=== PATIENT | female | born 1995 | race Hispanic/Latino ===

== ENCOUNTER 2017-11-18 23:43 | Observation (INO) | payer MEDICAID ==
[~2017-11-18] VITALS: Ht 152.4 cm; Wt 68.0 kg
[2017-11-19 00:11] LABS: APPEARANCE,URINE Clear (CLEAR); BILIRUBIN,URINE Negative (NEGATIVE); COLOR,URINE Yellow (YELLOW); GLUCOSE, URINE (UA) Negative (NEGATIVE); KETONES,URINE Negative (NEGATIVE); LEUKOCYTE ESTERASE ,URINE Small (NEGATIVE); NITRATE,URINE Negative (NEGATIVE); OCCULT BLOOD,URINE Negative (NEGATIVE); PH,URINE 5.5 (5.0-8.0); PROTEIN,URINE Trace (NEGATIVE)
[2017-11-19 00:19] LABS: RBC,URINE 0-1 /HPF (0-1)
[2017-11-19 00:20] LABS: BACTERIA,URINE Few /HPF (None Seen); MUCUS,URINE Few LPF (None Seen)
[2017-11-19 01:34] LABS: AMPHET/METH SCREEN,URINE NEGATIVE (NEGATIVE); BARBITURATE SCREEN, URINE NEGATIVE (NEGATIVE); BENZODIAZEPINES SCREEN,URINE NEGATIVE (NEGATIVE); CANNABINOID SCREEN,URINE NEGATIVE (NEGATIVE); COCAINE SCREEN,URINE NEGATIVE (NEGATIVE); OPIATE SCREEN,URINE NEGATIVE (NEGATIVE); PHENCYCLIDINE SCREEN,URINE NEGATIVE (NEGATIVE)
[2017-12-07] MEDS ORDERED: PREN-67 PO (23:39)
== END 2017-11-19 01:25 | disposition home or self-care (01) ==
LOC: EDH 23:43 → LDH 23:44
PROVIDERS: ADMIT Obstetrics & Gynecology; ATTEND Obstetrics & Gynecology
DX: O60.03 Preterm labor without delivery, third trimester (principal); O26.893 Other specified pregnancy related conditions, third trimester; N89.8 Other specified noninflammatory disorders of vagina; Z3A.36 36 weeks gestation of pregnancy
CPT/HCPCS: 80305; 81001; 99285; G0378 ×2

== ENCOUNTER 2018-11-27 17:12 | Emergency (ER) | payer MEDICAID, OTHER ==
[~2018-11-27 17:12] MED LIST: PREN-67 PO
[2018-11-27] MEDS ORDERED: ACETAMINOPHEN EXTRA STRENGTH 500 MG TABLET ONE (17:28)
[2018-11-27 17:29] LABS: APPEARANCE,URINE Clear (CLEAR); BILIRUBIN,URINE Negative (NEGATIVE); COLOR,URINE Yellow (YELLOW); GLUCOSE, URINE (UA) Negative (NEGATIVE); HCG,QUAL RESULT POSITIVE (NEGATIVE); KETONES,URINE Trace mg/dL (NEGATIVE); LEUKOCYTE ESTERASE ,URINE Small (NEGATIVE); NITRATE,URINE Negative (NEGATIVE); OCCULT BLOOD,URINE Negative (NEGATIVE); PH,URINE 5.5 (5.0-8.0); PROTEIN,URINE Negative (NEGATIVE)
[2018-11-27 17:35] LABS: BACTERIA,URINE Few /HPF (None Seen); RBC,URINE 0-1 /HPF (0-1)
[2018-11-27 17:36] LABS: MUCUS,URINE Many LPF (None Seen); SQUAMOUS EPITHELIAL CELL,UR Moderate /HPF (0-2)
== END 2018-11-27 18:43 | disposition home or self-care (01) ==
LOC: EDH 17:12
DX: O23.41 Unspecified infection of urinary tract in pregnancy, first trimester (principal); O26.891 Other specified pregnancy related conditions, first trimester; G44.209 Tension-type headache, unspecified, not intractable; Z98.890 Other specified postprocedural states; Z3A.01 Less than 8 weeks gestation of pregnancy
CPT/HCPCS: 36415; 76801; 81001; 81025; 84702

== ENCOUNTER 2018-12-01 13:04 | Emergency (ER) | payer OTHER ==
[2018-12-01] MEDS ORDERED: SODIUM CHLORIDE 0.9% 1000ML 1,000 ML IV ONE (13:40)
[2018-12-01 14:31] LABS: BASOPHILS % (AUTO) 0.6 % (0.0-5.0); EOSINOPHILS % (AUTO) 2.9 % (0.0-8.0); HEMATOCRIT 38.8 % (36-48); LYMPHOCYTES % (AUTO) 29.2 % (21.0-51.0); MEAN CORPUSCULAR HEMOGLOBIN 28.2 pg (27.0-33.0); MEAN CORPUSCULAR HGB CONC 33.6 g/dL (32.0-36.0); MEAN CORPUSCULAR VOLUME 84.1 fL (79-99); MONOCYTES % (AUTO) 5.8 % (3.0-13.0); NEUTROPHILS % (AUTO) 61.5 % (40.0-77.0); NUCLEATED RED BLOOD CELLS 0.1 % (0.0-0.19); PLATELET COUNT (AUTO) 285 K/uL (130-400); RED BLOOD CELL COUNT(AUTO) 4.61 MIL/uL (4.00-5.50); RED CELL DISTRIBUTION WIDTH 15.8 % (11.0-15.5); WHITE BLOOD COUNT (AUTO) 6.9 K/uL (4.8-10.8)
[2018-12-01 14:32] LABS: APPEARANCE,URINE Clear (CLEAR); BILIRUBIN,URINE Negative (NEGATIVE); COLOR,URINE Yellow (YELLOW); GLUCOSE, URINE (UA) Negative (NEGATIVE); KETONES,URINE 15 mg/dL (NEGATIVE); LEUKOCYTE ESTERASE ,URINE Negative (NEGATIVE); NITRATE,URINE Negative (NEGATIVE); OCCULT BLOOD,URINE Negative (NEGATIVE); PROTEIN,URINE Negative (NEGATIVE)
[2018-12-01 14:42] LABS: CREATININE 0.5 mg/dL (0.5-1.5); POTASSIUM 3.6 mmol/L (3.5-5.1)
== END 2018-12-01 16:01 | disposition home or self-care (01) ==
LOC: EDH 13:04
DX: O20.0 Threatened abortion (principal); Z3A.01 Less than 8 weeks gestation of pregnancy
CPT/HCPCS: 36415; 76801; 80048; 81003; 84702; 85025; 86900; 86901; 99285; J7030

== ENCOUNTER 2018-12-03 13:25 | Emergency (ER) | payer OTHER | END 2018-12-03 15:15 | disposition home or self-care (01) | LOC: EDH 13:25 | DX: Z34.01 Encounter for supervision of normal first pregnancy, first trimester (principal) | CPT/HCPCS: 36415; 84702 ==

== ENCOUNTER 2018-12-23 20:55 | Emergency (ER) | payer MEDICAID ==
[2018-12-23 22:13] LABS: BILIRUBIN,URINE Negative (NEGATIVE); COLOR,URINE Orange (YELLOW); GLUCOSE, URINE (UA) Negative (NEGATIVE); KETONES,URINE Negative (NEGATIVE); LEUKOCYTE ESTERASE ,URINE Large (NEGATIVE); NITRATE,URINE Negative (NEGATIVE); OCCULT BLOOD,URINE Large (NEGATIVE); PROTEIN,URINE POS 1+ mg/dL (NEGATIVE)
[2018-12-23 22:14] LABS: APPEARANCE,URINE CLOUDY (CLEAR)
[2018-12-23 22:35] LABS: BACTERIA,URINE Moderate /HPF (None Seen); MUCUS,URINE Few LPF (None Seen); RBC,URINE TNTC /HPF (0-1); SQUAMOUS EPITHELIAL CELL,UR Few /HPF (0-2)
== END 2018-12-23 23:09 | disposition home or self-care (01) ==
LOC: EDH 20:55
DX: O02.1 Missed abortion (principal); O23.41 Unspecified infection of urinary tract in pregnancy, first trimester; Z98.890 Other specified postprocedural states
CPT/HCPCS: 76801; 81001

== ENCOUNTER 2019-02-14 05:50 | Day surgery (SDC) | payer MEDICAID ==
[2019-02-10 12:51] VITALS: BP 113/67
[2019-02-10 12:52] LABS: BASOPHILS % (AUTO) 0.9 % (0.0-5.0); EOSINOPHILS % (AUTO) 4.6 % (0.0-8.0); HEMATOCRIT 31.4 % (36-48); LYMPHOCYTES % (AUTO) 40.5 % (21.0-51.0); MEAN CORPUSCULAR HEMOGLOBIN 24.5 pg (27.0-33.0); MEAN CORPUSCULAR HGB CONC 32.4 g/dL (32.0-36.0); MEAN CORPUSCULAR VOLUME 75.7 fL (79-99); PLATELET COUNT (AUTO) 382 K/uL (130-400); RED BLOOD CELL COUNT(AUTO) 4.15 MIL/uL (4.00-5.50); RED CELL DISTRIBUTION WIDTH 16.6 % (11.0-15.5); WHITE BLOOD COUNT (AUTO) 5.2 K/uL (4.8-10.8)
--- NOTE | 2019-02-10 15:19 | NUR ---
SPOKE TO NATALEE QUINTANA AND DR. BALL NO NEW ORDERS FOR ABNORMAL LABS.
[~2019-02-14] VITALS: Ht 157.5 cm; Wt 67.6 kg
[~2019-02-14 05:50] MED LIST changes: +IRON PO; +LACTATED RINGERS 1000ML 1,000 ML IV ONE; -PREN-67 PO
[2019-02-14 06:05] VITALS: BP 104/62
[2019-02-14] MEDS ORDERED: DEXAMETHASONE SOD PHOSPHATE 10MG/ML 1ML VIAL ONE (06:33)
[2019-02-14] MEDS ORDERED: ONDANSETRON HCL 4 MG/2 ML VIAL ONE (06:33)
[2019-02-14] MEDS ORDERED: PROPOFOL 10 MG/ML 20ML VIAL IV ONE ×2 (06:33→06:49)
[2019-02-14] MEDS ORDERED: LIDOCAINE PF 2% 5ML ABBOJECT ONE (06:33)
[2019-02-14] MEDS ORDERED: MIDAZOLAM HCL 1 MG/ML 2ML VIAL ONE (06:33)
[2019-02-14] MEDS ORDERED: FENTANYL CITRATE PF 50 MCG/1 ML 2ML VIAL ONE (06:34)
[2019-02-14] MEDS ORDERED: OXYTOCIN 10 USP UNITS/ML ONE (06:53)
[2019-02-14] MEDS ORDERED: CALDOLOR 800MG+NS 250ML 250 ML IV ONE (07:46)
[2019-02-14] MEDS ORDERED: CITRIC ACID/SODIUM CITRATE 30 ML UDCUP PO ONE (08:00)
[2019-02-14] MEDS ORDERED: SODIUM CHLORIDE 0.9% 1000ML 1,000 ML IV SCH (08:00)
[2019-02-14] MEDS ORDERED: LACTATED RINGERS 1000ML 1,000 ML IV SCH ×2 (08:00)
[2019-02-14] MEDS ORDERED: IPRATROPIUM/ALBUTEROL SULFATE 3 ML SOLUTION IH PRN (08:00)
[2019-02-14] MEDS ORDERED: MEPERIDINE-PF 50 MG/ML SYG IVP PRN (08:00)
[2019-02-14] MEDS ORDERED: SCOPOLAMINE HYDROBROMIDE 1 EACH ADH..PATCH TD ONE (08:00)
[2019-02-14] MEDS ORDERED: ONDANSETRON HCL 4 MG/2 ML VIAL IVP PRN (08:00)
[2019-02-14] MEDS ORDERED: FAMOTIDINE/PF 20 MG/2 ML VIAL IV ONE (08:00)
[2019-02-14] MEDS ORDERED: KETOROLAC TROMETHAMINE 30MG/ML IVP PRN (08:00)
[2019-02-14] MEDS ORDERED: MORPHINE SULFATE 5 MG/ML VIAL IVP PRN (08:00)
[2019-02-14] MEDS ORDERED: METOCLOPRAMIDE 10 MG/2 ML VIAL IVP PRN (08:00)
[2019-02-14 08:18] VITALS: BP 102/67
--- NOTE | 2019-02-14 08:30 | NUR ---
PT IS STABLE, NO HEAVY BLEEDING AND VOIDED X 1
[2019-02-14 08:35] VITALS: BP 103/70
--- NOTE | 2019-02-14 09:00 | NUR ---
PT V/S STABLE NO HEAVY BLEEDING. PT RECEIVED D/C INSTRUCTION AND VOIDED X 1. PT LEFT VIA WHEEL CHAIR IN PVT CAR WITH .
== END 2019-02-14 09:00 | disposition home or self-care (01) ==
LOC: DAH 05:50
PROVIDERS: ATTEND Obstetrics & Gynecology
DX: O02.1 Missed abortion (principal); N85.8 Other specified noninflammatory disorders of uterus; F17.210 Nicotine dependence, cigarettes, uncomplicated; Z98.890 Other specified postprocedural states; Z79.899 Other long term (current) drug therapy
CPT/HCPCS: 36415 ×2; 59820; 85025; 86850 ×2; 86900 ×2; 86901 ×2; 88305; A4215; A4221; A4222; A4223; A4606; A4663; J1100; J1741; J2001; J2250; J2405; J2590; J2704 ×2; J3010; J7120 ×2

== ENCOUNTER 2020-12-04 13:45 | Observation (INO) | payer MEDICAID ==
[~2020-12-04] VITALS: Ht 152.4 cm; Wt 73.9 kg
[~2020-12-04 13:45] MED LIST changes: -LACTATED RINGERS 1000ML 1,000 ML IV ONE
[2020-12-04 14:13] LABS: APPEARANCE,URINE Clear (CLEAR); BILIRUBIN,URINE Negative (NEGATIVE); COLOR,URINE Yellow (YELLOW); GLUCOSE, URINE (UA) Negative (NEGATIVE); KETONES,URINE Negative (NEGATIVE); LEUKOCYTE ESTERASE ,URINE Trace (NEGATIVE); NITRATE,URINE Negative (NEGATIVE); OCCULT BLOOD,URINE Negative (NEGATIVE); PH,URINE 6.5 (5.0-8.0); PROTEIN,URINE Negative (NEGATIVE); UROBILINOGEN,URINE 0.2 mg/dL (0.2-1.0)
[2020-12-04 14:19] LABS: BACTERIA,URINE Rare /HPF (None Seen); RBC,URINE 0-1 /HPF (0-1); SQUAMOUS EPITHELIAL CELL,UR Few /HPF (0-2); WBC,URINE 0-1 /HPF (0-1)
== END 2020-12-04 15:40 | disposition home or self-care (01) ==
LOC: EDH 13:49 → LDH 13:58
PROVIDERS: ADMIT Obstetrics & Gynecology; ATTEND Obstetrics & Gynecology
DX: O62.9 Abnormality of forces of labor, unspecified (principal); O26.893 Other specified pregnancy related conditions, third trimester; R10.9 Unspecified abdominal pain; Z3A.36 36 weeks gestation of pregnancy
CPT/HCPCS: 81001; G0378 ×2

== ENCOUNTER 2023-01-15 23:53 | Emergency (ER) | payer MEDICAID, OTHER ==
[~2023-01-15] VITALS: Ht 152.4 cm; Wt 77.6 kg
[~2023-01-15 23:53] MED LIST changes: +CYCL10TA16 PO; +NAPR-1180 PO
[2023-01-16 00:30] VITALS: BP 112/68; PULSE 75; RESP 17; O2SAT 98
[2023-01-16 00:46] LABS: APPEARANCE,URINE CLEAR (CLEAR); BILIRUBIN,URINE NEGATIVE (NEGATIVE); COLOR,URINE LIGHT-YELLOW (YELLOW); GLUCOSE, URINE (UA) NEGATIVE (NEGATIVE); KETONES,URINE NEGATIVE (NEGATIVE); LEUKOCYTE ESTERASE ,URINE 25 Leu/uL (NEGATIVE); NITRATE,URINE NEGATIVE (NEGATIVE); OCCULT BLOOD,URINE MODERATE (NEGATIVE); PROTEIN,URINE 10 mg/dL (NEGATIVE)
[2023-01-16 00:50] LABS: ADD UA MICROSCOPIC YES
[2023-01-16 00:52] LABS: BASOPHILS # (AUTO) 0.07 K/uL (0.00-0.20); BASOPHILS % (AUTO) 0.8 % (0.0-5.0); EOSINOPHILS # (AUTO) 0.44 K/uL (0.00-0.70); EOSINOPHILS % (AUTO) 4.9 % (0.0-8.0); HEMATOCRIT 34.9 % (36-48); IMMATURE GRANULOCYTE ABSOLUTE 0.02 K/uL (0-1); LYMPHOCYTES # (AUTO) 3.2 K/uL (1.0-4.8); LYMPHOCYTES % (AUTO) 35.7 % (21.0-51.0); MEAN CORPUSCULAR HEMOGLOBIN 28.4 pg (27.0-33.0); MEAN CORPUSCULAR VOLUME 86.2 fL (79-99); MONOCYTES # (AUTO) 0.7 K/uL (0.1-1.0); MONOCYTES % (AUTO) 7.4 % (3.0-13.0); NEUTROPHILS # (AUTO) 4.6 K/uL (1.8-7.7); PLATELET COUNT (AUTO) 287 K/uL (130-400); RED BLOOD CELL COUNT(AUTO) 4.05 MIL/uL (4.00-5.50); RED CELL DISTRIBUTION WIDTH 14.1 % (11.0-15.5)
[2023-01-16 00:58] LABS: BACTERIA,URINE RARE /HPF (None Seen); MUCUS,URINE RARE LPF (None Seen); SQUAMOUS EPITHELIAL CELL,UR RARE /HPF (0-2)
[2023-01-16 00:59] LABS: CREATININE 0.7 mg/dL (0.5-1.5); POTASSIUM 3.5 mmol/L (3.5-5.1)
[2023-01-16 01:04] LABS: ALBUMIN 3.3 g/dL (3.5-5.0); BILIRUBIN,TOTAL 0.1 mg/dL (0.2-1.0); TOTAL PROTEIN, SERUM 7.1 g/dL (6.0-8.3)
[2023-01-16] MEDS ORDERED: PREN1CAP37 PO (03:31)
== END 2023-01-16 03:42 | disposition home or self-care (01) ==
LOC: EDH 23:53
DX: O20.9 Hemorrhage in early pregnancy, unspecified (principal); Z3A.01 Less than 8 weeks gestation of pregnancy; Z79.899 Other long term (current) drug therapy; Z98.890 Other specified postprocedural states
CPT/HCPCS: 36415; 76817; 80053; 81001; 81025; 84702; 85025; 86900; 86901

== ENCOUNTER 2023-02-21 15:18 | Emergency (ER) | payer OTHER ==
[~2023-02-21] VITALS: Ht 152.4 cm; Wt 74.0 kg
[~2023-02-21 15:18] MED LIST changes: +PREN1CAP37 PO
[2023-02-21 15:20] VITALS: BP 116/66; PULSE 82; RESP 16
[2023-02-21] MEDS ORDERED: NAPR-1180 PO (16:21)
== END 2023-02-21 18:04 | disposition home or self-care (01) ==
LOC: EDH 15:18
DX: S16.1XXA Strain of muscle, fascia and tendon at neck level, initial encounter (principal); H92.01 Otalgia, right ear; Z79.899 Other long term (current) drug therapy; Z98.890 Other specified postprocedural states; X58.XXXA Exposure to other specified factors, initial encounter; Y93.89 Activity, other specified; Y92.89 Other specified places as the place of occurrence of the external cause; Y99.8 Other external cause status
CPT/HCPCS: 87880

== ENCOUNTER 2023-09-30 19:04 | Emergency (ER) | payer OTHER ==
[~2023-09-30] VITALS: Ht 152.4 cm; Wt 68.0 kg
[2023-09-30] MEDS ORDERED: NAPR-1023 PO (21:15)
[2023-09-30] MEDS ORDERED: CYCL5TAB PO (21:15)
[2023-09-30] MEDS ORDERED: SILV20CR11 TP (21:15)
[2023-09-30] MEDS: KETOROLAC 30MG VIAL (30MG/ML) IM ONE (21:19)
[2023-09-30] MEDS: TETANUS/DIPHTHERIA TOXOID [ADULT] 0.5 ML VIAL IM ONE (21:24)
[2023-09-30 21:34] VITALS: BP 121/62; PULSE 65; RESP 18; O2SAT 99
== END 2023-09-30 21:39 | disposition home or self-care (01) ==
LOC: EDH 19:04
DX: T22.422A Corrosion of unspecified degree of left elbow, initial encounter (principal); T22.412A Corrosion of unspecified degree of left forearm, initial encounter; S00.81XA Abrasion of other part of head, initial encounter; M79.10 Myalgia, unspecified site; Z79.899 Other long term (current) drug therapy; Z98.890 Other specified postprocedural states; Y93.I9 Activity, other involving external motion; Y92.488 Other paved roadways as the place of occurrence of the external cause; Y99.8 Other external cause status
CPT/HCPCS: 99284; 81025; 90714; 96372; 90471; J1885

== ENCOUNTER 2024-08-04 09:38 | Emergency (ER) | payer SELFPAY ==
[~2024-08-04] VITALS: Ht 152.4 cm; Wt 68.5 kg
[~2024-08-04 09:38] MED LIST changes: +CYCL5TAB3 PO; +NAPR-1194 PO; +SILV20CR11 TP
--- NOTE | 2024-08-04 10:27 | ERN ---
General Chief Complaint: Abdominal Pain Stated Complaint: EPIGASTRIC PAIN, N/V Time Seen by MD: 09:43 Source: patient History of Present Illness Initial Comments 28-year-old female coming in with abdominal discomfort. She states that he has a history of gastritis and this recently seen at another ER. She states that she had a CT and an ultrasound performed no acute findings were present. States that she was told to follow up with the ER if her symptoms did not improve. She was also referred to a mine car repairer for possible endoscopy. Allergies: Coded Allergies: No Known Allergies (Verified Allergy, 02/06/12) Home Meds Active Scripts Silver Sulfadiazine (Silvadene) 1 % Cream..g., 1 APPLIC TP BID for 10 Days, #50 G Prov:ARIN KUMAR 09/30/23 Cyclobenzaprine HCl (Cyclobenzaprine HCl) 5 Mg Tablet, 5 MG PO DAILYDINNER for 7 Days, #7 TAB Prov:ARIN KUMAR 09/30/23 Naproxen (Naproxen) 500 Mg Tablet, 500 MG PO BID for 5 Days, #10 TAB Prov:ARIN KUMAR 09/30/23 Naproxen (Naprosyn) 500 Mg Tablet, 500 MG PO BIDPC PRN for PAIN for 10 Days, #20 TAB 0 Refills take with meaL, note precautions Prov:ESTEVAN VALERA 02/21/23 93/Iron/Folate 9/Dha (Westgel Dha Softgel) 1 Each Capsule, 1 EACH PO DAILY, #30 CAP 0 Refills Prov:ALISIA GAMBOA MD 01/16/23 Cyclobenzaprine HCl (Flexeril) 10 Mg Tab, 10 MG PO BID, #30 TAB Prov:GAVIOTA FRANCO 04/22/22 Naproxen (Naprosyn) 500 Mg Tablet, 500 MG PO BIDPC, #60 TAB Prov:GAVIOTA FRANCO 04/22/22 Reported Medications [Iron] No Conflict Check, 1 TAB PO BID 02/10/19 Past Medical History Past Medical History: GERD Past Surgical History: Family History Family History: Negative Social History Social History: Negative Female( History) LMP: Jun 28, 2024 : 4 Para: 3 ROS Dictation CONSTITUTIONAL: No chills, no fever, no weakness, no diaphoresis, no malaise. HEAD/FACE: No signs of trauma. EENT: No eye pain, no blurred vision, no tearing, no double vision, no ear pain, no ear discharge, no nose pain, no nasal congestion, no throat pain, no throat swelling, no mouth pain. RESPIRATORY: No cough, no orthopnea, no SOB, no stridor, no wheezing. CARDIOVASCULAR: No chest pain, no edema, no palpitations, no syncope. GASTROINTESTINAL/ABDOMINAL: No abdominal pain, no constipation, no diarrhea, no nausea, no vomiting. GENITOURINARY: No abnormal discharge, no dysuria, no frequent urination, no hematuria. No complaints of pain in the genitals. MUSCULOSKELETAL: No back pain, no gout, no joint pain, no joint swelling, no muscle pain, no muscle stiffness, no neck pain. INTEGUMENTARY: No change in color, no change in hair/nails, no dryness, no lesion, no lumps, no rash. NEUROLOGICAL/PSYCH: No anxiety, not depressed, no emotional problem, no headache, no numbness, no pre-existing deficit, no history of seizures, no tremors, no weakness. HEMATOLOGIC/LYMPHATIC: Not anemic, no history of blood clots, no apparent bleeding, no bruising, glands not swollen. All Systems Negative, Except as Noted. Physical Exam Physical Exam Dictation VITAL SIGNS: Reviewed. GENERAL APPEARANCE: Alert, oriented x3, no acute distress, obese. HEAD AND FACE: Non-traumatic. EYES: PERRL, pink conjunctivas, eyelid no trauma, anterior chamber clear. EARS: Pinnas intact and no signs of trauma or erythema. Ear canals clear and no discharge. TMs no erythema. NOSE: No discharge, no bleeding. OROPHARYNX: Mouth normal, teeth no caries, tongue pink. Pharynx clear, no erythema. Tonsils no exudates, no abscesses noted. Mucous membrane moist. NECK: Supple, non-tender, no thyromegaly, no masses, no JVD, no bruits. BREAST: Deferred. CHEST: No tenderness, no crepitus, no paradoxical movement, no retractions. LUNGS: Clear, well-ventilated, symmetric, no rales, no wheezing, no rhonchi, no stridor, good breath sounds bilaterally. HEART: Regular rate, regular rhythm, no murmur, no gallops. VASCULAR: No peripheral edema. ABDOMEN: Soft, positive bowel sounds, nondistended, no guarding, nontender, no rebound, no masses no hepatomegaly, no splenomegaly, no Ho's sign, no hernias. RECTAL: Deferred. GENITAL: Deferred. NEUROLOGICAL: Normal speech, gross motor function intact, gross sensory function intact. MUSCULOSKELETAL: Neck nontender, full range of motion, back nontender, full range of motion. EXTREMITIES: Nontender, full range of motion. SKIN: Color pink, dry, no turgor, no rash, no lacerations, no abrasions, no contusions. LYMPHATICS: Deferred. Results Laboratory and Microbiology Lab and Micro Result Laboratory Tests Test 08/04/24 10:12 08/04/24 10:15 08/04/24 10:30 Urine Color YELLOW (YELLOW) Urine Appearance CLEAR (CLEAR) Urine pH 5.5 (5.0-8.0) Urine Specific [place] 1.028 (1.001-1.031) Urine Protein 10 mg/dL (NEGATIVE) H Urine Glucose (UA) NEGATIVE mg/dL (NEGATIVE) Urine Ketones 5 mg/dL (NEGATIVE) H Urine Occult Blood +- (TRACE) (NEGATIVE) H Urine Nitrate NEGATIVE (NEGATIVE) Urine Bilirubin NEGATIVE mg/dL (NEGATIVE) Urine Urobilinogen 0.2 mg/dL (0.2-1.0) Urine Leukocyte Esterase 25 Juanis/uL (NEGATIVE) H Urine RBC 2-5 /HPF (0-1) H Urine WBC 2-5 /HPF (0-1) H Urine Squamous Epithelial Cells MOD /HPF (0-2) Urine Bacteria RARE /HPF (None Seen) Urine HCG, Qualitative NEGATIVE (NEGATIVE) Urine Opiates Screen NEGATIVE (NEGATIVE) Urine Barbiturates Screen NEGATIVE (NEGATIVE) Urine Phencyclidine Screen NEGATIVE (NEGATIVE) Urine Amphetamines Screen NEGATIVE (NEGATIVE) Urine Benzodiazepines Screen NEGATIVE (NEGATIVE) Urine Cocaine Screen NEGATIVE (NEGATIVE) Urine Marijuana (THC) Screen POSITIVE (NEGATIVE) H White Blood Count 6.3 K/uL (4.8-10.8) Red Blood Count 4.66 MIL/uL (4.00-5.50) Hemoglobin 13.9 g/dL (12.0-16.0) Hematocrit 42.3 % (36-48) Mean Corpuscular Volume 90.8 fL (79-99) Mean Corpuscular Hemoglobin 29.8 pg (27.0-33.0) Mean Corpuscular Hemoglobin Concent 32.9 g/dL (32.0-36.0) Red Cell Distribution Width 13.2 % (11.0-15.5) Platelet Count 246 K/uL (130-400) Mean Platelet Volume 9.9 fL (7.5-10.5) Immature Granulocyte % (Auto) 0.2 % (0-1) Neutrophils (%) (Auto) 65.8 % (40.0-77.0) Lymphocytes (%) (Auto) 18.5 % (21.0-51.0) L Monocytes (%) (Auto) 7.0 % (3.0-13.0) Eosinophils (%) (Auto) 7.6 % (0.0-8.0) Basophils (%) (Auto) 0.9 % (0.0-5.0) Neutrophils # (Auto) 4.2 K/uL (1.8-7.7) Lymphocytes # (Auto) 1.2 K/uL (1.0-4.8) Monocytes # (Auto) 0.4 K/uL (0.1-1.0) Eosinophils # (Auto) 0.48 K/uL (0.00-0.70) Basophils # (Auto) 0.06 K/uL (0.00-0.20) Absolute Immature Granulocyte (auto 0.01 K/uL (0-1) Nucleated Red Blood Cells 0.0 % (0.0-0.19) Sodium Level 138 mmol/L (136-145) Potassium Level 3.6 mmol/L (3.5-5.1) Chloride Level 103 mmol/L (101-111) Carbon Dioxide Level 29 mmol/L (21-32) Blood Urea Nitrogen 10 mg/dL (7-18) Creatinine 0.5 mg/dL (0.5-1.0) Glomerular Filtration Rate Calc 129 mL/min (>90) Random Glucose 94 mg/dL (70-105) Total Calcium 9.5 mg/dL (8.5-10.1) Total Bilirubin 0.4 mg/dL (0.2-1.0) Aspartate Amino Transf (AST/SGOT) 35 U/L (10-37) Alanine Aminotransferase (ALT/SGPT) 108 U/L (12-78) H Alkaline Phosphatase 77 U/L (50-136) Total Protein 8.0 g/dL (6.0-8.3) Albumin 3.8 g/dL (3.5-5.0) Lipase 46 U/L (16-77) Influenza Type A Antigen Negative For Type A Influenza Type B Antigen Negative For Type B SARS-CoV-2, RNA, NAAT NEGATIVE SARS CoV-2 Labs Reviewed?: Yes MDM Patient is a 28-year-old female coming in to be evaluated for abdominal discomfort. Patient states that this has been ongoing for a couple of days and she was evaluated another hospital laboratory workup included CT were negative. Laboratory workup here positive for cannabis. I advised her appropriate follow up with PCP in the avoidance of recreational drugs in his this could increased abdominal discomfort. ED Course Orders Procedure Category Date Status Time Urinalysis Profile LAB 08/04/24 Complete 09:50 ,Urine Test LAB 08/04/24 Complete 09:50 Cbc With Differential LAB 08/04/24 Complete 09:56 Comprehensive LAB 08/04/24 Complete Metabolic Panel 09:56 12 Lead Ekg Tracing- EKG 08/04/24 Complete Technical 09:56 Lipase LAB 08/04/24 Complete 09:56 Influenza Type A & B, LAB 08/04/24 Complete Rapid 09:56 Covid Rna Naat LAB 08/04/24 Complete 09:56 Drug Screen Urine LAB 08/04/24 Complete 11:03 Vital Signs Date Time Temp Pulse Resp B/P (MAP) Pulse Ox O2 Delivery O2 Flow Rate FiO2 08/04/24 10:30 98.2 73 10 116/72 100 Room Air* 0 21 08/04/24 09:40 98.2 77 16 115/87 0 Room Air 0 DX & DISP Disposition: Discharge Departure Impression: Primary Impression: Cannabis abuse Additional Impression: Gastritis Condition: Stable Scripts Pantoprazole Sodium (Protonix) 40 Mg Ectab 1 TAB PO DAILY for 30 Days, #30 TAB 0 Refills Prov: GEETHA COLLINS MD 08/04/24 Additional Instructions: FOLLOW-UP WITH PRIMARY CARE PROVIDER IN 1 TO 2 DAYS. TAKE MEDICATIONS DIRECTED HERE IN THE EMERGENCY ROOM. OKAY TO CONTINUE HOME MEDICATIONS UNLESS OTHERWISE DISCUSSED DURING YOUR VISIT IN THE EMERGENCY ROOM TODAY. RETURN TO YOUR NEAREST EMERGENCY ROOM IF SYMPTOMS WORSEN OR IF THERE IS NO IMPROVEMENT. CALL 911 IF YOU NEED IMMEDIATE ASSISTANCE. TAKE TYLENOL [id number] NEEDED AND IF NO CONTRAINDICATIONS ARE PRESENT. INCREASE ORAL HYDRATION. A WOUND CULTURE OR URINE CULTURE WAS ORDERED HERE IN THE EMERGENCY ROOM DEPARTMENT PLEASE FOLLOW-UP WITH PRIMARY CARE PROVIDER AND ADVISE THEM TO GET REPEAT PORTS FROM OUR FACILITY. IF YOU HAD ANY LYDIA WRAP/SPLINTS THAT WERE APPLIED HERE, PLEASE DO NOT REMOVE THEM UNTIL YOU SEE YOUR PRIMARY CARE OR SPECIALTY. Referrals: Referrals: NONE (PCP) ROSEANN FOX MD Time of Disposition: 12:41 GEETHA COLLINS MD Aug 04, 2024 10:27
[2024-08-04 10:31] LABS: BASOPHILS # (AUTO) 0.06 K/uL (0.00-0.20); BASOPHILS % (AUTO) 0.9 % (0.0-5.0); EOSINOPHILS # (AUTO) 0.48 K/uL (0.00-0.70); EOSINOPHILS % (AUTO) 7.6 % (0.0-8.0); HEMATOCRIT 42.3 % (36-48); IMMATURE GRANULOCYTE ABSOLUTE 0.01 K/uL (0-1); LYMPHOCYTES # (AUTO) 1.2 K/uL (1.0-4.8); LYMPHOCYTES % (AUTO) 18.5 % (21.0-51.0); MEAN CORPUSCULAR HEMOGLOBIN 29.8 pg (27.0-33.0); MEAN CORPUSCULAR HGB CONC 32.9 g/dL (32.0-36.0); MEAN CORPUSCULAR VOLUME 90.8 fL (79-99); MONOCYTES # (AUTO) 0.4 K/uL (0.1-1.0); NEUTROPHILS # (AUTO) 4.2 K/uL (1.8-7.7); NEUTROPHILS % (AUTO) 65.8 % (40.0-77.0); PLATELET COUNT (AUTO) 246 K/uL (130-400); RED BLOOD CELL COUNT(AUTO) 4.66 MIL/uL (4.00-5.50); RED CELL DISTRIBUTION WIDTH 13.2 % (11.0-15.5); WHITE BLOOD COUNT (AUTO) 6.3 K/uL (4.8-10.8)
--- NOTE | 2024-08-04 10:33 | EKG ---
[facility] Test Date: 2024-08-04 Test Time: 10:28:34 Pat Name: GURINDER YANG Department: ED Room: Gender: F Clinical Practitioner: [id number] : 1995 Requested By: GEETHA COLLINS Order Number: [id number] Reading MD: Yvon Rodrigues Measurements Intervals [place] Rate: 67 P: 20 [place]: 145 QRS: -23 QRSD: 98 T: 21 QT: 379 QTc: 400 Interpretive Statements Sinus rhythm No previous ECG available for comparison Electronically Signed On 08-07-2024 15:59:53 DIRECTOR OF EMPLOYEE DEVELOPMENT by Yvon Rodrigues Please click the below link to view image of tracing.
[2024-08-04 10:39] LABS: APPEARANCE,URINE CLEAR (CLEAR); BILIRUBIN,URINE NEGATIVE (NEGATIVE); COLOR,URINE YELLOW (YELLOW); GLUCOSE, URINE (UA) NEGATIVE (NEGATIVE); KETONES,URINE 5 mg/dL (NEGATIVE); LEUKOCYTE ESTERASE ,URINE 25 Leu/uL (NEGATIVE); NITRATE,URINE NEGATIVE (NEGATIVE); PH,URINE 5.5 (5.0-8.0); PROTEIN,URINE 10 mg/dL (NEGATIVE); UROBILINOGEN,URINE 0.2 mg/dL (0.2-1.0)
[2024-08-04 10:41] LABS: CREATININE 0.5 mg/dL (0.5-1.0); POTASSIUM 3.6 mmol/L (3.5-5.1)
[2024-08-04 10:47] LABS: ADD UA MICROSCOPIC YES
[2024-08-04 10:48] LABS: ALBUMIN 3.8 g/dL (3.5-5.0); BILIRUBIN,TOTAL 0.4 mg/dL (0.2-1.0)
[2024-08-04 10:50] LABS: BACTERIA,URINE RARE /HPF (None Seen); MUCUS,URINE RARE LPF (None Seen); SQUAMOUS EPITHELIAL CELL,UR MOD /HPF (0-2)
[2024-08-04 10:52] LABS: HCG,QUALITATIVE URINE NEGATIVE (NEGATIVE)
[2024-08-04 12:10] LABS: AMPHET/METH SCREEN,URINE NEGATIVE (NEGATIVE); BARBITURATE SCREEN, URINE NEGATIVE (NEGATIVE); BENZODIAZEPINES SCREEN,URINE NEGATIVE (NEGATIVE); CANNABINOID SCREEN,URINE POSITIVE (NEGATIVE); COCAINE SCREEN,URINE NEGATIVE (NEGATIVE); OPIATE SCREEN,URINE NEGATIVE (NEGATIVE); PHENCYCLIDINE SCREEN,URINE NEGATIVE (NEGATIVE)
[2024-08-04 12:22] LABS: SARS-CoV-2, RNA, NAAT NEGATIVE SARS CoV-2 (NEGATIVE)
[2024-08-04 12:30] VITALS: BP 124/75; PULSE 70; RESP 16; TEMP 98; O2SAT 100
[2024-08-04 12:30] LABS: INFLUENZA TYPE A Negative For Type A (NEGATIVE); INFLUENZA TYPE B Negative For Type B (NEGATIVE)
[2024-08-04] MEDS ORDERED: PANT40TA55 PO (12:42)
== END 2024-08-04 12:51 | disposition home or self-care (01) ==
LOC: EDH 09:38
DX: K29.70 Gastritis, unspecified, without bleeding (principal); F12.10 Cannabis abuse, uncomplicated; K21.9 Gastro-esophageal reflux disease without esophagitis; Z20.822 Contact with and (suspected) exposure to COVID-19; Z79.899 Other long term (current) drug therapy; Z98.890 Other specified postprocedural states
CPT/HCPCS: 36415; 80053; 80305; 81001; 81025; 83690; 85025; 87635; 87804; 93005; 99284

== ENCOUNTER 2024-12-24 13:25 | Emergency (ER) | payer SELFPAY ==
[~2024-12-24] VITALS: Ht 152.4 cm; Wt 64.9 kg
[~2024-12-24 13:25] MED LIST changes: +PANT40TA55 PO
[2024-12-24 13:53] LABS: IMMATURE GRANULOCYTE ABSOLUTE 0.02 K/uL (0-1); NUCLEATED RED BLOOD CELLS 0.0 % (0.0-0.19); PLATELET COUNT (AUTO) 177 K/uL (130-400); RED BLOOD CELL COUNT(AUTO) 5.13 MIL/uL (4.00-5.50); RED CELL DISTRIBUTION WIDTH 13.2 % (11.0-15.5); WHITE BLOOD COUNT (AUTO) 6.0 K/uL (4.8-10.8)
--- NOTE | 2024-12-24 13:56 | ERN ---
General Chief Complaint: Abdominal Pain Stated Complaint: ABD PAIN, DIARRHEA Time Seen by MD: 13:29 Source: patient History of Present Illness Initial Comments PATIENT IS A 29-YEAR-OLD FEMALE COMING IN COMPLAINING OF LOWER ABDOMINAL PAIN. LONG WITH THE PAIN PATIENT STATES SHE HAS BEEN HAVING DIARRHEA COUPLE OF DAYS. Allergies: Coded Allergies: No Known Allergies (Verified Allergy, 02/06/12) Home Meds Active Scripts Dicyclomine HCl (Bentyl) 10 Mg Cap, 1 CAP PO Q6HPRN PRN for ABD PAIN for 5 Days, #20 CAP 0 Refills Prov:GEETHA COLLINS MD 12/24/24 Pantoprazole Sodium (Protonix) 40 Mg Ectab, 1 TAB PO DAILY for 30 Days, #30 TAB 0 Refills Prov:GEETHA COLLINS MD 12/24/24 Lactobacillus Acidophilus (Acidophilus Probiotic) 500 Million Cell Capsule, 1 CAP PO DAILY for 30 Days, #30 CAP 0 Refills Prov:GEETHA COLLINS MD 12/24/24 Pantoprazole Sodium (Protonix) 40 Mg Ectab, 1 TAB PO DAILY for 30 Days, #30 TAB 0 Refills Prov:GEETHA COLLINS MD 08/04/24 Silver Sulfadiazine (Silvadene) 1 % Cream..g., 1 APPLIC TP BID for 10 Days, #50 G Prov:ARIN KUMAR 09/30/23 Cyclobenzaprine HCl (Cyclobenzaprine HCl) 5 Mg Tablet, 5 MG PO DAILYDINNER for 7 Days, #7 TAB Prov:ARIN KUMAR 09/30/23 Naproxen (Naproxen) 500 Mg Tablet, 500 MG PO BID for 5 Days, #10 TAB Prov:ARIN KUMAR 09/30/23 Naproxen (Naprosyn) 500 Mg Tablet, 500 MG PO BIDPC PRN for PAIN for 10 Days, #20 TAB 0 Refills take with meaL, note precautions Prov:ESTEVAN VALERA 02/21/23 93/Iron/Folate 9/Dha (Westgel Dha Softgel) 1 Each Capsule, 1 EACH PO DAILY, #30 CAP 0 Refills Prov:ALISIA GAMBOA MD 01/16/23 Cyclobenzaprine HCl (Flexeril) 10 Mg Tab, 10 MG PO BID, #30 TAB Prov:GAVIOTA FRANCO SHERICE 04/22/22 Naproxen (Naprosyn) 500 Mg Tablet, 500 MG PO BIDPC, #60 TAB Prov:GAVIOTA FRANCO SHERICE 04/22/22 Reported Medications [Iron] No Conflict Check, 1 TAB PO BID 02/10/19 Past Medical History Past Medical History: No Pertinent History Past Surgical History: Family History Family History: Negative Social History Social History: Negative Female( History) : 4 Para: 3 ROS Dictation CONSTITUTIONAL: NO CHILLS, NO FEVER, NO WEAKNESS, NO DIAPHORESIS, NO MALAISE. HEAD/FACE: NO SIGNS OF TRAUMA. EENT: NO EYE PAIN, NO BLURRED VISION, NO TEARING, NO DOUBLE VISION, NO EAR PAIN, NO EAR DISCHARGE, NO NOSE PAIN, NO NASAL CONGESTION, NO THROAT PAIN, NO THROAT SWELLING, NO MOUTH PAIN. RESPIRATORY: NO COUGH, NO ORTHOPNEA, NO SOB, NO STRIDOR, NO WHEEZING. CARDIOVASCULAR: NO CHEST PAIN, NO EDEMA, NO PALPITATIONS, NO SYNCOPE. GASTROINTESTINAL/ABDOMINAL: ABDOMINAL PAIN, NO CONSTIPATION, DIARRHEA, NO NAUSEA, NO VOMITING. GENITOURINARY: NO ABNORMAL DISCHARGE, NO DYSURIA, NO FREQUENT URINATION, NO HEMATURIA. NO COMPLAINTS OF PAIN IN THE GENITALS. MUSCULOSKELETAL: NO BACK PAIN, NO GOUT, NO JOINT PAIN, NO JOINT SWELLING, NO MUSCLE PAIN, NO MUSCLE STIFFNESS, NO NECK PAIN. INTEGUMENTARY: NO CHANGE IN COLOR, NO CHANGE IN HAIR/NAILS, NO DRYNESS, NO LESION, NO LUMPS, NO RASH. NEUROLOGICAL/PSYCH: NO ANXIETY, NOT DEPRESSED, NO EMOTIONAL PROBLEM, NO HEADAC HE, NO NUMBNESS, NO PRE-EXISTING DEFICIT, NO HISTORY OF SEIZURES, NO TREMORS, NO WEAKNESS. HEMATOLOGIC/LYMPHATIC: NOT ANEMIC, NO HISTORY OF BLOOD CLOTS, NO APPARENT BLEEDING, NO BRUISING, GLANDS NOT SWOLLEN. ALL SYSTEMS NEGATIVE, EXCEPT NOTED. Physical Exam Physical Exam Dictation VITAL SIGNS: REVIEWED. GENERAL APPEARANCE: ALERT, ORIENTED X3, NO ACUTE DISTRESS, OBESE. HEAD AND FACE: NON-TRAUMATIC. EYES: PERRL, PINK CONJUNCTIVAS, EYELID NO TRAUMA, ANTERIOR CHAMBER CLEAR. EARS: PINNAS INTACT AND NO SIGNS OF TRAUMA OR ERYTHEMA. EAR CANALS CLEAR AND NO DISCHARGE. TMS NO ERYTHEMA. NOSE: NO DISCHARGE, NO BLEEDING. OROPHARYNX: MOUTH NORMAL, TEETH NO CARIES, TONGUE PINK. PHARYNX CLEAR, NO ERYTHEMA. TONSILS NO EXUDATES, NO ABSCESSES NOTED. MUCOUS MEMBRANE MOIST. NECK: SUPPLE, NON-TENDER, NO THYROMEGALY, NO MASSES, NO JVD, NO BRUITS. BREAST: DEFERRED. CHEST: NO TENDERNESS, NO CREPITUS, NO PARADOXICAL MOVEMENT, NO RETRACTIONS. LUNGS: CLEAR, WELL-VENTILATED, SYMMETRIC, NO RALES, NO WHEEZING, NO RHONCHI, NO STRIDOR, GOOD BREATH SOUNDS BILATERALLY. HEART: REGULAR RATE, REGULAR RHYTHM, NO MURMUR, NO GALLOPS. VASCULAR: NO PERIPHERAL EDEMA. ABDOMEN: SOFT, POSITIVE BOWEL SOUNDS, NONDISTENDED, NO GUARDING, NONTENDER, NO REBOUND, NO MASSES NO HEPATOMEGALY, NO SPLENOMEGALY, NO SHAIKH'S SIGN, NO HERNIAS. RECTAL: DEFERRED. GENITAL: DEFERRED. NEUROLOGICAL: NORMAL SPEECH, GROSS MOTOR FUNCTION INTACT, GROSS SENSORY FUNCTION INTACT. MUSCULOSKELETAL: NECK NONTENDER, FULL RANGE OF MOTION, BACK NONTENDER, FULL RANGE OF MOTION. EXTREMITIES: NONTENDER, FULL RANGE OF MOTION. SKIN: COLOR PINK, DRY, NO TURGOR, NO RASH, NO LACERATIONS, NO ABRASIONS, NO CONTUSIONS. LYMPHATICS: DEFERRED. Results Laboratory and Microbiology Lab and Micro Result Laboratory Tests Test 12/24/24 13:43 White Blood Count 6.0 K/uL (4.8-10.8) Red Blood Count 5.13 MIL/uL (4.00-5.50) Hemoglobin 15.4 g/dL (12.0-16.0) Hematocrit 44.6 % (36-48) Mean Corpuscular Volume 86.9 fL (79-99) Mean Corpuscular Hemoglobin 30.0 pg (27.0-33.0) Mean Corpuscular Hemoglobin Concent 34.5 g/dL (32.0-36.0) Red Cell Distribution Width 13.2 % (11.0-15.5) Platelet Count 177 K/uL (130-400) Mean Platelet Volume 9.2 fL (7.5-10.5) Immature Granulocyte % (Auto) 0.3 % (0-1) Neutrophils (%) (Auto) 72.4 % (40.0-77.0) Lymphocytes (%) (Auto) 19.1 % (21.0-51.0) L Monocytes (%) (Auto) 7.3 % (3.0-13.0) Eosinophils (%) (Auto) 0.7 % (0.0-8.0) Basophils (%) (Auto) 0.2 % (0.0-5.0) Neutrophils # (Auto) 4.4 K/uL (1.8-7.7) Lymphocytes # (Auto) 1.2 K/uL (1.0-4.8) Monocytes # (Auto) 0.4 K/uL (0.1-1.0) Eosinophils # (Auto) 0.04 K/uL (0.00-0.70) Basophils # (Auto) 0.01 K/uL (0.00-0.20) Absolute Immature Granulocyte (auto 0.02 K/uL (0-1) Nucleated Red Blood Cells 0.0 % (0.0-0.19) Urine Color YELLOW (YELLOW) Urine Appearance CLEAR (CLEAR) Urine pH 6.0 (5.0-8.0) Urine Specific [place] 1.034 (1.001-1.031) Urine Protein 70 mg/dL (NEGATIVE) H Urine Glucose (UA) NEGATIVE mg/dL (NEGATIVE) Urine Ketones 150 mg/dL (NEGATIVE) H Urine Occult Blood +- (TRACE) (NEGATIVE) H Urine Nitrate NEGATIVE (NEGATIVE) Urine Bilirubin 0.5 mg/dL (NEGATIVE) H Urine Urobilinogen 2.0 mg/dL (0.2-1.0) H Urine Leukocyte Esterase NEGATIVE Juanis/uL Urine RBC 2-5 /HPF (0-1) H Urine WBC 2-5 /HPF (0-1) H Urine Squamous Epithelial Cells MANY /HPF (0-2) Urine Bacteria RARE /HPF (None Seen) Urine HCG, Qualitative NEGATIVE (NEGATIVE) Sodium Level 137 mmol/L (136-145) Potassium Level 3.5 mmol/L (3.5-5.1) Chloride Level 99 mmol/L (101-111) L Carbon Dioxide Level 25 mmol/L (21-32) Blood Urea Nitrogen 11 mg/dL (7-18) Creatinine 0.6 mg/dL (0.5-1.0) Glomerular Filtration Rate Calc 123 mL/min (>90) Random Glucose 100 mg/dL (70-105) Total Calcium 9.9 mg/dL (8.5-10.1) Total Bilirubin 0.4 mg/dL (0.2-1.0) Aspartate Amino Transf (AST/SGOT) 41 U/L (10-37) H Alanine Aminotransferase (ALT/SGPT) 31 U/L (12-78) Alkaline Phosphatase 65 U/L (50-136) Total Protein 8.1 g/dL (6.0-8.3) Albumin 3.8 g/dL (3.5-5.0) Lipase 35 U/L (16-77) Human Chorionic Gonadotropin, Quant 0 mIU/mL (0-5) Labs Reviewed?: Yes EKG/XRAY/US/CT/MRI EKG Comment 12/24/2024 TIME 1:58 P.M. VENTRICULAR RATE 89 SINUS R[address]M [place] [address] WAVE ELEVATION OR DEPRESSION MDM MDM: DIFFERENTIAL DIAGNOSIS: VIRAL GASTROENTERITIS, ABDOMINAL CRAMPING, DIARRHEA, RATIONALE: TESTS CONSIDERED AND ORDERED SECONDARY TO SHARED DECISION MAKING INCLUDE: PREVIOUS OUTSIDE RECORDS REVIEWED: OLD ER VISITS. RISK OF COMPLICATION AND/OR MORBIDITY OR MORTALITY OF PATIENT MANAGEMENT: NONE MEDICATIONS-PER MEDICATION RECONCILIATION NEED FOR HOSPITALIZATION: PATIENT DOES NOT MEET CRITERIA FOR HOSPITALIZATION. PATIENT IS A 29-YEAR-OLD FEMALE COMING IN COMPLAINING OF DIARRHEA AND ABDOMINAL CRAMPING. LABORATORY WORKUP WITHIN NORMAL LIMITS. PATIENT WAS HYDRATED WITH IV FLUIDS GIVEN BENTYL AND GI COCKTAIL STATES HE FEELS MUCH BETTER WILL BE DISCHARGED IN STABLE CONDITION. I DID ADVISED HER APPROPRIATE FOLLOW UP WITH PCP AND DIET MODIFICATION IN HIS FOR SYMPTOMATIC IMPROVEMENT. ED Course Orders Procedure Category Date Status Time Cbc With Differential LAB 12/24/24 Complete 13:38 Comprehensive LAB 12/24/24 Complete Metabolic Panel 13:38 Hcg,Quantitative LAB 12/24/24 Complete 13:38 ,Urine Test LAB 12/24/24 Complete 13:38 Urinalysis Profile LAB 12/24/24 Complete 13:38 Occult Blood Stool LAB 12/24/24 Logged Single Only 13:38 12 Lead Ekg Tracing- EKG 12/24/24 Complete Technical 13:38 Lactated Ringers PHA 12/24/24 Complete 1000ml (Lactated 14:00 Pantoprazole 40mg Inj PHA 12/24/24 Complete (Protonix 40mg Inj 14:00 Lipase LAB 12/24/24 Complete 13:38 Lidocaine Hcl 2% PHA 12/24/24 Complete Viscous (Lidocaine Hcl 14:30 Mag/Alum/Simeth 30ml PHA 12/24/24 Complete (Maalox Plus 30ml) 14:30 Dicyclomine Hcl PHA 12/24/24 Complete (Bentyl 20mg Inj) 16:30 Dicyclomine Hcl PHA 12/24/24 Complete (Bentyl 10mg/5ml 16:30 Current Medications Medications (Trade) Dose Ordered Sig/Shaq Route PRN Reason Start Time Stop Time Status Last Admin Dose Admin Al Hydroxide/Mg Hydroxide (MAALox PLUS 30ML) 30 ml ONCE ONCE PO 12/24/24 14:30 12/24/24 14:31 DC 12/24/24 14:35 Dicyclomine HCl (Bentyl 10mg/5ml Syrup) 10 mg ONCE ONCE PO 12/24/24 16:30 12/24/24 16:31 DC 12/24/24 16:11 Dicyclomine HCl (Bentyl 20mg Inj) 10 mg ONCE ONCE IM 12/24/24 16:30 12/24/24 16:07 DC Lactated Ringer's 1,000 ml @ 0 mls/hr ONCE ONCE IV 12/24/24 14:00 12/24/24 14:01 DC 12/24/24 14:25 Lidocaine HCl (Lidocaine HCl 2% Viscous) 10 ml ONCE ONCE PO 12/24/24 14:30 12/24/24 14:31 DC 12/24/24 14:35 Pantoprazole Sodium (PROTonix 40MG INJ) 40 mg ONCE ONCE IVP 12/24/24 14:00 12/24/24 14:01 DC 12/24/24 14:25 Vital Signs Date Time Temp Pulse Resp B/P (MAP) Pulse Ox O2 Delivery O2 Flow Rate FiO2 12/24/24 15:29 98.4 90 18 103/70 98 Room Air* 0 21 12/24/24 14:30 98.4 87 18 104/74 97 Room Air* 0 21 12/24/24 13:30 98.4 90 18 106/78 99 Room Air* 0 21 12/24/24 13:28 98.4 90 18 106/78 98 Room Air 0 DX & DISP Disposition: Discharge Departure Impression: Primary Impression: Viral gastroenteritis Condition: Stable Scripts Dicyclomine HCl (Bentyl) 10 Mg Cap 1 CAP PO Q6HPRN PRN for ABD PAIN for 5 Days, #20 CAP 0 Refills Prov: DENNIS,GEETHA MD 12/24/24 Pantoprazole Sodium (Protonix) 40 Mg Ectab 1 TAB PO DAILY for 30 Days, #30 TAB 0 Refills Prov: GEETHA COLLINS MD 12/24/24 Lactobacillus Acidophilus (Acidophilus Probiotic) 500 Million Cell Capsule 1 CAP PO DAILY for 30 Days, #30 CAP 0 Refills Prov: GEETHA COLLINS MD 12/24/24 Additional Instructions: FOLLOW-UP WITH PRIMARY CARE PROVIDER IN 1 TO 2 DAYS. TAKE MEDICATIONS DIRECTED HERE IN THE EMERGENCY ROOM. OKAY TO CONTINUE HOME MEDICATIONS UNLESS OTHERWISE DISCUSSED DURING YOUR VISIT IN THE EMERGENCY ROOM TODAY. RETURN TO YOUR NEAREST EMERGENCY ROOM IF SYMPTOMS WORSEN OR IF THERE IS NO IMPROVEMENT. CALL 911 IF YOU NEED IMMEDIATE ASSISTANCE. TAKE TYLENOL XMDC-YHV-ASAMNGE NEEDED AND IF NO CONTRAINDICATIONS ARE PRESENT. INCREASE ORAL HYDRATION. A WOUND CULTURE OR URINE CULTURE WAS ORDERED HERE IN THE EMERGENCY ROOM DEPARTMENT PLEASE FOLLOW-UP WITH PRIMARY CARE PROVIDER AND ADVISE THEM TO GET REPORTS FROM OUR FACILITY. IF YOU HAD ANY LYDIA WRAP/SPLINTS THAT WERE APPLIED HERE, PLEASE DO NOT REMOVE THEM UNTIL YOU SEE YOUR PRIMARY CARE OR SPECIALTY. REFERRALS: Referrals: SELF,REFERRAL (PCP) ROSEANN FOX MD Time of Disposition: 16:58 GEETHA COLLINS MD Dec 24, 2024 13:56
[2024-12-24 14:02] LABS: CREATININE 0.6 mg/dL (0.5-1.0); GLOMERULAR FILTR. RATE CALC 123.0 mL/min (>90); GLUCOSE,RANDOM 100.0 mg/dL (70-105); SODIUM SERUM 137.0 mmol/L (136-145); UREA NITROGEN, BLOOD 11.0 mg/dL (7-18)
[2024-12-24 14:12] LABS: ASPARTATE AMINOTRANSFERASE 41.0 U/L (10-37); HCG,QUANTITATIVE 0.0 mIU/mL (0-5); TOTAL PROTEIN, SERUM 8.1 g/dL (6.0-8.3)
[2024-12-24 14:16] LABS: HCG,QUALITATIVE URINE NEGATIVE (NEGATIVE)
[2024-12-24 14:17] LABS: APPEARANCE,URINE CLEAR (CLEAR); GLUCOSE, URINE (UA) NEGATIVE (NEGATIVE); LEUKOCYTE ESTERASE ,URINE NEGATIVE Leu/uL (NEGATIVE); NITRATE,URINE NEGATIVE (NEGATIVE); OCCULT BLOOD,URINE +- (TRACE) (NEGATIVE)
[2024-12-24 14:19] LABS: ADD UA MICROSCOPIC YES
[2024-12-24 14:21] LABS: SQUAMOUS EPITHELIAL CELL,UR MANY /HPF (0-2)
[2024-12-24] MEDS: LACTATED RINGERS 1000ML 1,000 ML IV ONE (14:25)
[2024-12-24] MEDS: LIDOCAINE HCL 2% VISCOUS 15 ML UDCUP PO ONE (14:35)
[2024-12-24] MEDS: MAG/ALUM/SIMETH 30 ML UDCUP PO ONE (14:35)
--- NOTE | 2024-12-24 14:42 | EKG ---
[facility] Test Date: 2024-12-24 Test Time: 13:58:16 Pat Name: GURINDER YANG Department: ED Room: Gender: F Electrical Machine Builder: [id number] : 1995 Requested By: GEETHA COLLINS Order Number: [id number] Reading MD: Nelda Sellers Measurements Intervals [place] Rate: 89 P: 76 [place]: 133 QRS: -44 QRSD: 91 T: 2 QT: 351 QTc: 427 Interpretive Statements Sinus rhythm Inferior infarct, old Compared to ECG 08/04/2024 10:28:34 Myocardial infarct finding now present Electronically Signed On 12-25-2024 15:29:48 CDT by Nelda Sellers Please click the below link to view image of tracing.
--- NOTE | 2024-12-24 14:56 | NUR ---
OCCULT BLOOD SAMPLE SENT
[2024-12-24] MEDS: DICYCLOMINE HCL 10 MG/5 ML ML PO ONE (16:11)
[2024-12-24] MEDS ORDERED: DICYCLOMINE 20MG (10MG/ML) AMP IM ONE (16:30)
[2024-12-24 17:00] VITALS: BP 104/71; PULSE 75; RESP 17; TEMP 98.5; O2SAT 98
[2024-12-24] MEDS ORDERED: LACT-356 PO (17:00)
[2024-12-24] MEDS ORDERED: DICY10 PO (17:00)
== END 2024-12-24 17:20 | disposition home or self-care (01) ==
LOC: EDH 13:25
DX: A08.4 Viral intestinal infection, unspecified (principal); R10.2 Pelvic and perineal pain; Z79.899 Other long term (current) drug therapy
CPT/HCPCS: 99284; 96374; 96361; 80053; 84702; 83690; 85025; 81001; 81025; 36415; 93005; J7120; J2470

== ENCOUNTER 2025-01-16 15:24 | Emergency (ER) | payer SELFPAY ==
[~2025-01-16] VITALS: Ht 152.4 cm; Wt 63.6 kg
[~2025-01-16 15:24] MED LIST changes: +DICY10 PO; +LACT-356 PO
[2025-01-16 16:17] LABS: IMMATURE GRANULOCYTE ABSOLUTE 0.01 K/uL (0-1); NUCLEATED RED BLOOD CELLS 0.0 % (0.0-0.19); PLATELET COUNT (AUTO) 277 K/uL (130-400); RED BLOOD CELL COUNT(AUTO) 4.57 MIL/uL (4.00-5.50); RED CELL DISTRIBUTION WIDTH 13.8 % (11.0-15.5); WHITE BLOOD COUNT (AUTO) 5.8 K/uL (4.8-10.8)
[2025-01-16 16:20] LABS: APPEARANCE,URINE CLEAR (CLEAR); GLUCOSE, URINE (UA) NEGATIVE (NEGATIVE); LEUKOCYTE ESTERASE ,URINE NEGATIVE Leu/uL (NEGATIVE); NITRATE,URINE NEGATIVE (NEGATIVE); OCCULT BLOOD,URINE LARGE (NEGATIVE)
[2025-01-16 16:21] LABS: ADD UA MICROSCOPIC YES
[2025-01-16 16:23] LABS: HCG,QUALITATIVE URINE NEGATIVE (NEGATIVE)
[2025-01-16 16:25] LABS: OTHER CASTS, URINE 1 /LPF (None Seen); SQUAMOUS EPITHELIAL CELL,UR FEW /HPF (0-2)
[2025-01-16 16:32] LABS: CREATININE 0.4 mg/dL (0.5-1.0); GLOMERULAR FILTR. RATE CALC 136.0 mL/min (>90); GLUCOSE,RANDOM 94.0 mg/dL (70-105); SODIUM SERUM 140.0 mmol/L (136-145); UREA NITROGEN, BLOOD 10.0 mg/dL (7-18)
--- NOTE | 2025-01-16 16:43 | HMCIMG ---
EXAM: CR Chest, 1 View. CLINICAL HISTORY: pain COMPARISON: None provided. FINDINGS: LUNGS: The lungs show no infiltrate or other acute finding. PLEURAL SPACES: No pleural effusion or pneumothorax. MEDIASTINUM: Cardiac size and mediastinal contours within normal limits. BONES: No acute osseous abnormality. IMPRESSION: No acute cardiopulmonary pathology is evident. /[place]
[2025-01-16] MEDS: 0.9%NACL 1000ML 1,000 ML IV STA (17:25)
[2025-01-16] MEDS ORDERED: KETO10TA2 PO (17:43)
--- NOTE | 2025-01-16 17:44 | ERN ---
ED Note History of Present Illness Stated Complaint: BLOOD IN STOOL, BACK PAIN, ABD PAIN Chief Complaint: Multiple Complaints Time Seen by MD: 15:34 Time Seen by Midlevel: 15:36 Dictation: 29 y/o old female coming in for multiple complaints. Patient states he has been having left upper back pain when she takes a deep breath, and thinks she has a GI bleed but is unsure. Patient states she had a bowel movement yesterday and had streaks of blood over the stool, states it stool was brown. Patient also states she has started her menstruation so she does not know if this is related to her menstrual cycle or GI. Allergies: Coded Allergies: No Known Allergies (Verified Allergy, 02/06/12) Home Meds Active Scripts Dicyclomine HCl (Bentyl) 10 Mg Cap, 1 CAP PO Q6HPRN PRN for ABD PAIN for 5 Days, #20 CAP 0 Refills Prov:GEETHA COLLINS MD 12/24/24 Pantoprazole Sodium (Protonix) 40 Mg Ectab, 1 TAB PO DAILY for 30 Days, #30 TAB 0 Refills Prov:GEETHA COLLINS MD 12/24/24 Lactobacillus Acidophilus (Acidophilus Probiotic) 500 Million Cell Capsule, 1 CAP PO DAILY for 30 Days, #30 CAP 0 Refills Prov:GEETHA COLLINS MD 12/24/24 Pantoprazole Sodium (Protonix) 40 Mg Ectab, 1 TAB PO DAILY for 30 Days, #30 TAB 0 Refills Prov:GEETHA COLLINS MD 08/04/24 Silver Sulfadiazine (Silvadene) 1 % Cream..g., 1 APPLIC TP BID for 10 Days, #50 G Prov:ARIN KUMAR 09/30/23 Cyclobenzaprine HCl (Cyclobenzaprine HCl) 5 Mg Tablet, 5 MG PO DAILYDINNER for 7 Days, #7 TAB Prov:ARIN KUMAR 09/30/23 Naproxen (Naproxen) 500 Mg Tablet, 500 MG PO BID for 5 Days, #10 TAB Prov:ARIN KUMAR 09/30/23 Naproxen (Naprosyn) 500 Mg Tablet, 500 MG PO BIDPC PRN for PAIN for 10 Days, #20 TAB 0 Refills take with meaL, note precautions Prov:ESTEVAN VALERA 02/21/23 93/Iron/Folate 9/Dha (Westgel Dha Softgel) 1 Each Capsule, 1 EACH PO DAILY, #30 CAP 0 Refills Prov:ALISIA GAMBOA MD 01/16/23 Cyclobenzaprine HCl (Flexeril) 10 Mg Tab, 10 MG PO BID, #30 TAB Prov:GAVIOTA FRANCO 04/22/22 Naproxen (Naprosyn) 500 Mg Tablet, 500 MG PO BIDPC, #60 TAB Prov:GAVIOTA FRANCO 04/22/22 Reported Medications [Iron] No Conflict Check, 1 TAB PO BID 02/10/19 Past Medical History Past Medical History: No Pertinent History Surgical History: Family History: Negative Social History: Negative LMP: Jan 16, 2025 : 4 Para: 3 Review of System Dictation Constitutional: Negative for fever,chills, and weight loss Eyes: Negative for injury, pain,redness, and discharge ENT: Negative for injury,pain or swelling Cardiovascular: Negative for chest pain, palpitations, and edema Respiratory: Negative for shortness of breath, cough, and wheezing, Abdomen/GI: Negative for abdominal pain, nausea, vomiting, diarrhea, and constipation Back: Negative for injury and pain : Negative for injury, bleeding and discharge MS/Extremity: Negative for injury and deformity Skin: Negative for rash, and discoloration Neuro: Negative for headache, weakness, numbness, tingling, and seizure Psych: Negative for suicide ideation, homicidal ideation, and hallucinations Review of Systems: was completed Initial Vital Sign VS Vital Signs Date Time Temp Pulse Resp B/P (MAP) Pulse Ox O2 Delivery O2 Flow Rate FiO2 01/16/25 15:27 98.4 64 16 120/73 98 Room Air 0 01/16/25 16:18 21 Physical Exam Dictation General: awake, alert, NAD Head/Face: Normocephalic, atraumatic Eyes: PERRL, EOMI, vision at baseline ENT: oral cavity clear, TMs clear, no signs of infection Neck: Trachea midline, supple, no nuchal rigidity Cardiovascular: RRR, normal S1/S2, No MRGs, no JVD Respiratory: CTAB, no respiratory distress, No rales or wheezes Abdomen: Soft, non-tender, non-distended, normal bowel sounds, no guarding or rebound. Skin: Warm, dry, normal turgor, no rash MS/Extremity: Pulses equal, no cyanosis, neurovascular intact, FROM Neuro: COAx4, GCS 15, strength 5/5, CN 2-12 intact, normal cerebellar exam, normal gait, Psych: Normal behavior, mood, and affect normal On rectal exam performed with bear keeper Ying. No external or internal hemorrhoids noted. No blood noted. No stool in the rectal vault. Results (Laboratory/Radiology) Laboratory/Radiology Laboratory Tests Test 01/16/25 16:07 01/16/25 16:10 White Blood Count 5.8 K/uL (4.8-10.8) Red Blood Count 4.57 MIL/uL (4.00-5.50) Hemoglobin 13.6 g/dL (12.0-16.0) Hematocrit 41.0 % (36-48) Mean Corpuscular Volume 89.7 fL (79-99) Mean Corpuscular Hemoglobin 29.8 pg (27.0-33.0) Mean Corpuscular Hemoglobin Concent 33.2 g/dL (32.0-36.0) Red Cell Distribution Width 13.8 % (11.0-15.5) Platelet Count 277 K/uL (130-400) Mean Platelet Volume 9.8 fL (7.5-10.5) Immature Granulocyte % (Auto) 0.2 % (0-1) Neutrophils (%) (Auto) 44.8 % (40.0-77.0) Lymphocytes (%) (Auto) 40.6 % (21.0-51.0) Monocytes (%) (Auto) 6.0 % (3.0-13.0) Eosinophils (%) (Auto) 7.4 % (0.0-8.0) Basophils (%) (Auto) 1.0 % (0.0-5.0) Neutrophils # (Auto) 2.6 K/uL (1.8-7.7) Lymphocytes # (Auto) 2.4 K/uL (1.0-4.8) Monocytes # (Auto) 0.4 K/uL (0.1-1.0) Eosinophils # (Auto) 0.43 K/uL (0.00-0.70) Basophils # (Auto) 0.06 K/uL (0.00-0.20) Absolute Immature Granulocyte (auto 0.01 K/uL (0-1) Nucleated Red Blood Cells 0.0 % (0.0-0.19) Sodium Level 140 mmol/L (136-145) Potassium Level 3.8 mmol/L (3.5-5.1) Chloride Level 104 mmol/L (101-111) Carbon Dioxide Level 30 mmol/L (21-32) Blood Urea Nitrogen 10 mg/dL (7-18) Creatinine 0.4 mg/dL (0.5-1.0) L Glomerular Filtration Rate Calc 136 mL/min (>90) Random Glucose 94 mg/dL (70-105) Total Calcium 9.2 mg/dL (8.5-10.1) Urine Color LIGHT-YELLOW (YELLOW) Urine Appearance CLEAR (CLEAR) Urine pH 7.5 (5.0-8.0) Urine Specific [place] 1.024 (1.001-1.031) Urine Protein NEGATIVE mg/dL (NEGATIVE) Urine Glucose (UA) NEGATIVE mg/dL (NEGATIVE) Urine Ketones NEGATIVE mg/dL (NEGATIVE) Urine Occult Blood LARGE (NEGATIVE) H Urine Nitrate NEGATIVE (NEGATIVE) Urine Bilirubin NEGATIVE mg/dL (NEGATIVE) Urine Urobilinogen 0.2 mg/dL (0.2-1.0) Urine Leukocyte Esterase NEGATIVE [place]/uL Urine RBC 26-50 /HPF (0-1) H Urine WBC 2-5 /HPF (0-1) H Urine Squamous Epithelial Cells FEW /HPF (0-2) Urine Bacteria RARE /HPF (None Seen) Urine Other Casts 1 /LPF (None Seen) Urine HCG, Qualitative NEGATIVE (NEGATIVE) Labs Reviewed?: Yes X-RAY Comment: [place] [id number] [id number] IMAGING REPORT Signed PATIENT: GURINDER YANG MR#: [id number] : 1995 SEX: F AGE: 29 LOCATION: ED ORDER STATUS: REG REPORT#: [id number] SERVICE [id number] REASON: pain ORDERING PHYSICIAN: DANIEL CARVALHO NP PROCEDURE: CXR1VW - CHEST 1VW EXAM: CR Chest, 1 View. CLINICAL HISTORY: pain COMPARISON: None provided. FINDINGS: LUNGS: The lungs show no infiltrate or other acute finding. PLEURAL SPACES: No pleural effusion or pneumothorax. MEDIASTINUM: Cardiac size and mediastinal contours within normal limits. BONES: No acute osseous abnormality. IMPRESSION: No acute cardiopulmonary pathology is evident. /[place] DICTATED BY: CHASE WINCHESTER MD DATE: 01/16/251741 ELECTRONICALLY SIGNED BY: CHASE WINCHESTER MD DATE: 01/16/251741 ED Course ED Course Orders Procedure Category Date Status Time Cbc With Differential LAB 01/16/25 Complete 15:47 Basic Metabolic Panel LAB 01/16/25 Complete 15:47 Urinalysis Profile LAB 01/16/25 Complete 15:47 ,Urine Test LAB 01/16/25 Complete 15:47 Chest 1vw RAD 01/16/25 Resulted 15:47 Morphine 2mg Syg PHA 01/16/25 Complete (Morphine 2mg Syg) 17:03 Ondansetron 4mg Inj PHA 01/16/25 Complete (Zofran 4mg Inj) 17:03 0.9%Nacl 1000ml (Ns PHA 01/16/25 In Process 1000ml) 17:03 Ketorolac PHA 01/16/25 Verified Tromethamine 15mg/Ml 17:38 Current Medications Medications (Trade) Dose Ordered Sig/Shaq Route PRN Reason Start Time Stop Time Status Last Admin Dose Admin Morphine Sulfate (morPHINE 2MG SYG) 2 mg ONCE STAT IVP 01/16/25 17:03 01/16/25 17:07 DC 01/16/25 17:25 Ondansetron HCl (zoFRAN 4MG INJ) 4 mg ONCE STAT IVP 01/16/25 17:03 01/16/25 17:07 DC 01/16/25 17:25 Sodium Chloride 1,000 ml @ 1,000 mls/hr Q1H STAT IV 01/16/25 17:03 01/16/25 18:02 01/16/25 17:25 Vital Signs Date Time Temp Pulse Resp B/P (MAP) Pulse Ox O2 Delivery O2 Flow Rate FiO2 01/16/25 16:18 98.8 70 20 108/74 100 Room Air* 0 21 01/16/25 15:27 98.4 64 16 120/73 98 Room Air 0 Medical Decision Making MDM MDM: 29 y/o old female coming in for multiple complaints. Patient states he has been having left upper back pain when she takes a deep breath, and thinks she has a GI bleed but is unsure. Patient states she had a bowel movement yesterday and had streaks of blood over the stool, states it stool was brown. Patient also states she has started her menstruation so she does not know if this is related to her menstrual cycle or GI. Blood work is unremarkable. Discussed extensively with the possible outcomes. Educated patient has the blood in her stool could be related to a menstrual cycle however this continues she needs to follow up with PCP. Educated that her back pain could be costochondritis as her x-ray is normal. Patient states he feels better after pain medication. Educated to follow up with PCP in 1-2 days return to the hospital as needed. Differential diagnosis: GI bleed, costochondritis, pleurisy, pneumonia Rationale: Tests considered and ordered secondary to shared decision making include: Previous outside records reviewed: Old ER visits. Risk of complication and/or morbidity or mortality of patient management: None Medications-Per medication reconciliation Need for hospitalization: Patient does not meet criteria for hospitalization. Need for emergency major/minor surgery: No There are no social concerns with this patient. Prescription drug management Prescriptions will include symptomatic care Patient's prior external medical records from other ER visits were reviewed by me as indicated. Prior testing and results from previous visits were reviewed. Prior tests were taken into account with medical decision making and resource utilization, independent historian/historians were used to obtain complete medical history. I independently interpreted the test that were performed, results were reviewed by me and considered findings on radiology if ordered. Medical management and examination interpretation discussions were had by me with other qualified healthcare professionals as indicated for the patient's care. DX & DISP Disposition: Discharge Departure Impression: Primary Impression: Costochondritis Additional Impression: Menstruation Condition: Stable Scripts Ketorolac Tromethamine (Ketorolac Tromethamine) 10 Mg Tablet 1 TAB PO Q6HPRN PRN for pain for 3 Days, #12 TAB 0 Refills Prov: DANIEL CARVALHO CAR GROOMER 01/16/25 Referrals: SELF,REFERRAL (PCP) Time of Disposition: 17:43 I have reviewed the case, and I agree with, Diagnosis and Plan DANIEL CARVALHO NP Jan 16, 2025 17:44
[2025-01-16 17:57] VITALS: BP 103/57; PULSE 67; RESP 20; TEMP 98.8; O2SAT 100
== END 2025-01-16 18:17 | disposition home or self-care (01) ==
LOC: EDH 15:24
DX: M94.0 Chondrocostal junction syndrome [Tietze] (principal); N92.6 Irregular menstruation, unspecified; Z98.890 Other specified postprocedural states; Z79.899 Other long term (current) drug therapy
CPT/HCPCS: 99284; 96374; 96375; 71045; 96361; 80048; 85025; 81001; 81025; 36415; J1885; J2270; J7030; J2405; 96365